=== PATIENT | male | born 1985 | race Caucasian/White ===

== ENCOUNTER → 2016-10-06 | Day surgery (SDC) | payer OTHER ==
[~2016-10-06] VITALS: Ht 182.9 cm; Wt 58.3 kg
[~2016-10-06] MED LIST: B COMPLETE1 EACH PO; CLEOCIN300 MG PO; FLEXERIL5 MG PO; HYDROCODON-ACE1 EAC7 PO; NAPROSYN500 MG PO; NORCO 5/3251 TABLET PO; NORCO 7.5/321 TABLET PO; PERCOCET 10-651 EACH PO; PERCOCET 5/31 TABLET PO; SAPHRIS10 MG SL; TYLENOL WITH C1 EACH PO; ULTRAM50 MG PO
[2016-10-06 01:25] LABS: HEMATOCRIT 43.2 % (38.0-50.0); MCH 31.1 PG (29.0-34.0); MCHC 35.2 G/DL (30.0-36.0); MCV 88.3 FL (86-99); MEAN PLAT.VOLUME 10.8 uM^3 (9.0-12.4); PLATELET COUNT 243 K/uL (156-360); RBC DIS.WIDTH-CV 12.7 % (11.8-14.6); RBC DIS.WIDTH-SD 40.5 % (39-53); RED BLOOD COUNT 4.89 M/uL (4.00-5.50); WHITE BLOOD COUNT 9.3 K/uL (4.1-10.2)
[2016-10-06 01:45] LABS: CHLORIDE 107 mEq/L (99-109); SODIUM 142 mEq/L (136-147)
[2016-10-06 01:47] LABS: GLUCOSE 122 mg/dL (70-99)
[2016-10-06 01:49] LABS: ANION GAP 8 MEQ/L (2-14)
[2016-10-06 01:51] LABS: GFR ESTIMATE (CALCULATED) > 59 mL/min/
[2016-10-06 01:52] LABS: UREA NITROGEN (BUN) 8 mg/dL (9-23)
[2016-10-06 02:36] VITALS: BP 118/76
== END | disposition home or self-care (01) ==
LOC: EME 00:09 → SDC 02:46 → EME 02:46
PROVIDERS: Emergency Medicine
PROC: 0DC48ZZ Extirpation of Matter from Esophagogastric Junction, Via Natural or Artificial Opening Endoscopic (ICD-10-PCS; principal; 2016-10-06)
DX: T18.128A Food in esophagus causing other injury, initial encounter (principal); Y92.89 Other specified places as the place of occurrence of the external cause; J45.909 Unspecified asthma, uncomplicated; F17.200 Nicotine dependence, unspecified, uncomplicated
CPT/HCPCS: 80048; 85027; 99281; 99284; J2250; J3010

== ENCOUNTER 2017-09-03 17:24 | Emergency (ER) | payer OTHER ==
[~2017-09-03] VITALS: Ht 182.9 cm; Wt 59.2 kg
[2017-09-03 17:27] VITALS: BP 123/87
[2017-09-04] MEDS ORDERED: NAPROSYN500 MG PO (21:13)
[2017-09-04] MEDS ORDERED: MEDROL DOSEPAK4 MG PO (21:13)
[2017-09-04] MEDS ORDERED: FLEXERIL5 MG PO (21:13)
== END 2017-09-03 17:55 | disposition left against medical advice (07) ==
LOC: EME 17:24
DX: M79.601 Pain in right arm (principal); Z53.21 Procedure and treatment not carried out due to patient leaving prior to being seen by health care provider

== ENCOUNTER 2017-09-04 20:25 | Emergency (ER) | payer OTHER ==
[~2017-09-04] VITALS: Ht 182.9 cm; Wt 60.1 kg
[2017-09-04] MEDS ORDERED: FLEXERIL5 MG PO (21:13)
[2017-09-04] MEDS ORDERED: NAPROSYN500 MG PO (21:13)
[2017-09-04] MEDS ORDERED: MEDROL DOSEPAK4 MG PO (21:13)
[2017-09-04 21:34] VITALS: BP 122/83
== END 2017-09-04 21:34 | disposition home or self-care (01) ==
LOC: EME 20:25 → RME 20:25
DX: S46.911A Strain of unspecified muscle, fascia and tendon at shoulder and upper arm level, right arm, initial encounter (principal); X58.XXXA Exposure to other specified factors, initial encounter; F17.200 Nicotine dependence, unspecified, uncomplicated
CPT/HCPCS: 99281; 99283; J1885

== ENCOUNTER 2017-10-18 20:42 | Emergency (ER) | payer OTHER ==
[~2017-10-18] VITALS: Ht 182.9 cm; Wt 60.9 kg
[~2017-10-18 20:42] MED LIST changes: +MEDROL DOSEPAK4 MG PO
[2017-10-18] MEDS ORDERED: CLEOCIN300 MG PO (21:45)
[2017-10-18] MEDS ORDERED: MOTRIN600 MG PO (21:45)
[2017-10-18] MEDS ORDERED: ULTRAM50 MG PO (21:45)
[2017-10-18 22:03] VITALS: BP 128/89
== END 2017-10-18 22:09 | disposition home or self-care (01) ==
LOC: EME 20:42
DX: K08.89 Other specified disorders of teeth and supporting structures (principal); F17.200 Nicotine dependence, unspecified, uncomplicated; J45.909 Unspecified asthma, uncomplicated; Z88.0 Allergy status to penicillin; Z88.1 Allergy status to other antibiotic agents; Z88.5 Allergy status to narcotic agent
CPT/HCPCS: 99281; 99283

== ENCOUNTER 2018-02-04 18:15 | Emergency (ER) | payer OTHER ==
[~2018-02-04] VITALS: Ht 182.9 cm; Wt 61.6 kg
[~2018-02-04 18:15] MED LIST changes: +MOTRIN600 MG PO
[2018-02-04] MEDS ORDERED: ZOFRAN4 MG PO (19:04)
[2018-02-04] MEDS ORDERED: CLEOCIN300 MG PO (19:04)
[2018-02-04] MEDS ORDERED: PERIOGARD473 ML MM (19:04)
[2018-02-04] MEDS ORDERED: TRAMADOL HCL50 MG PO (19:04)
[2018-02-04] MEDS ORDERED: MOTRIN600 MG PO (19:05)
[2018-02-04 19:14] VITALS: BP 128/76
== END 2018-02-04 19:20 | disposition home or self-care (01) ==
LOC: EME 18:15
DX: K05.10 Chronic gingivitis, plaque induced (principal); K02.9 Dental caries, unspecified; J45.909 Unspecified asthma, uncomplicated; F17.200 Nicotine dependence, unspecified, uncomplicated; Z88.0 Allergy status to penicillin; Z88.5 Allergy status to narcotic agent; Z88.4 Allergy status to anesthetic agent
CPT/HCPCS: 99281; 99283